=== PATIENT | female | born 1955 | race Caucasian/White ===

== ENCOUNTER 2024-03-03 23:47 | Emergency (ER) | payer MEDICARE, MEDICAID ==
[~2024-03-03] VITALS: Ht 157.5 cm; Wt 56.8 kg
[2024-03-04 00:55] VITALS: BP 146/75; PULSE 88; RESP 16; TEMP 98.5; O2SAT 98
== END 2024-03-04 00:58 | disposition home or self-care (01) ==
LOC: ER 23:48
DX: S61.002A Unspecified open wound of left thumb without damage to nail, initial encounter (principal); W57.XXXA Bitten or stung by nonvenomous insect and other nonvenomous arthropods, initial encounter; Y93.89 Activity, other specified; Y92.89 Other specified places as the place of occurrence of the external cause; Y99.8 Other external cause status
CPT/HCPCS: 99281